=== PATIENT | female | born 1955 | race Caucasian/White ===

== ENCOUNTER 2016-12-27 17:59 | Inpatient (IN) | payer OTHER ==
[~2016-12-27] VITALS: Ht 165.1 cm; Wt 84.1 kg
[2016-12-27 21:25] VITALS: Ht 165.1 cm; Wt 84.1 kg
[2016-12-27] MEDS ORDERED: LORAZEPAM 1 MG TAB PO PRN (21:30)
[2016-12-27] MEDS: traMADol 50 MG TAB PO PRN (22:36)
[2016-12-27 23:00] VITALS: BP 120/63; RESP 18
[2016-12-28] MEDS ORDERED: BISACODYL 10 MG SUPP PR PRN (00:30)
[2016-12-28] MEDS ORDERED: MAGNESIUM HYDROXIDE 30ML CUP PO PRN (00:30)
[2016-12-28] MEDS ORDERED: ACETAMINOPHEN 325 MG TAB PO PRN (00:30)
[2016-12-28] MEDS ORDERED: LACTULOSE 30ML CUP PO PRN (00:30)
[2016-12-28] MEDS ORDERED: MIRTAZAPINE 15 MG TAB ONE (01:05)
[2016-12-28] MEDS: MIRTAZAPINE 15 MG TAB PO SCH ×2 (01:08→21:11)
[2016-12-28 02:00] VITALS: BP 95/51; RESP 18
[2016-12-28] MEDS: PANTOPRAZOLE (EC) 40 MG TAB PO SCH (05:56)
[2016-12-28] MEDS: traMADol 50 MG TAB PO PRN (05:56)
[2016-12-28] MEDS: SPIRONOLACTONE 50 MG TAB PO SCH ×2 (05:59→18:00)
[2016-12-28] MEDS ORDERED: ALENDRONATE 70 MG TAB PO SCH (07:05)
[2016-12-28 07:09] LABS: BASOPHIL # 0.1 10^3/ul (0.0-0.1); BASOPHILS % 1.1 % (0.0-2.0); EOSINOPHILS # 0.2 10^3/ul (0.0-0.5); EOSINOPHILS % 1.6 % (0.0-7.0); HEMOGLOBIN 12.8 g/dl (12.0-16.0); LYMPHOCYTES # 1.4 10^3/ul (0.8-2.9); LYMPHOCYTES % 15.1 % (15.0-51.0); MEAN CORPUSCULAR HEMOGLOBIN 29.4 pg (29.0-33.0); MEAN CORPUSCULAR VOLUME 91.7 fl (82.0-101.0); MEAN PLATELET VOLUME 9.7 fl (7.4-10.4); MONOCYTE # 0.6 10^3/ul (0.3-0.9); NEUTROPHIL # 6.9 10^3/ul (1.6-7.5); NEUTROPHILS % 73.4 % (39.0-77.0); PLATELET COUNT 485 10^3/UL (140-415); RED BLOOD COUNT 4.36 10^6/ul (4.20-5.40); RED CELL DISTRIBUTION WIDTH 14.6 % (11.5-14.5); WHITE BLOOD COUNT 9.4 10^3/ul (4.8-10.8)
[2016-12-28 07:31] LABS: ALBUMIN/GLOBULIN RATIO 1.02; BILIRUBIN,INDIRECT 0.6 mg/dl (0-1.1); BILIRUBIN,TOTAL 0.6 mg/dl (0.2-1.3); CALCIUM 9.1 mg/dl (8.4-10.2); CREATININE 0.91 mg/dl (0.44-1.00); POTASSIUM 4.2 mmol/L (3.5-5.1); TOTAL PROTEIN 7.9 g/dl (6.1-8.1)
[2016-12-28 08:00] VITALS: BP 154/82; RESP 19
[2016-12-28] MEDS ORDERED: ERGOCALCIFEROL 50,000 UNIT CAP PO SCH (09:00)
[2016-12-28] MEDS: GABAPENTIN 300 MG CAP PO SCH ×3 (09:33→21:10)
[2016-12-28] MEDS: RANITIDINE 150 MG TAB PO SCH (09:34)
[2016-12-28] MEDS: DOCUSATE SODIUM 100 MG CAP PO SCH ×2 (09:34→21:11)
[2016-12-28] MEDS: NAPROXEN 500 MG TAB PO SCH ×2 (09:34→21:10)
[2016-12-28] MEDS ORDERED: traMADol 50 MG TAB PO PRN (10:00)
[2016-12-28] MEDS: oxyCODONE 5 MG TAB PO PRN (10:47)
[2016-12-28] MEDS ORDERED: CALCIUM CARBONATE 500 MG CHEW TAB PO PRN (11:30)
[2016-12-28] MEDS: LORAZEPAM 1 MG TAB PO SCH ×2 (11:43→21:00)
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
[2016-12-28] MEDS: RIVAROXABAN 10 MG TABLET PO SCH ×2 (13:30→21:15)
[2016-12-28 14:00] VITALS: BP 120/82; PULSE 80; RESP 19
[2016-12-28 20:00] VITALS: BP 124/62; RESP 19
[2016-12-29 02:00] VITALS: BP 130/63; RESP 18
[2016-12-29] MEDS: SPIRONOLACTONE 50 MG TAB PO SCH ×2 (06:32→18:00)
[2016-12-29] MEDS: PANTOPRAZOLE (EC) 40 MG TAB PO SCH (06:32)
[2016-12-29] MEDS: traMADol 50 MG TAB PO PRN ×2 (06:45→21:58)
[2016-12-29 06:50] LABS: BASOPHIL # 0.1 10^3/ul (0.0-0.1); BASOPHILS % 0.8 % (0.0-2.0); EOSINOPHILS # 0.1 10^3/ul (0.0-0.5); EOSINOPHILS % 1.1 % (0.0-7.0); HEMOGLOBIN 13.2 g/dl (12.0-16.0); LYMPHOCYTES # 1.6 10^3/ul (0.8-2.9); LYMPHOCYTES % 17.8 % (15.0-51.0); MEAN CORPUSCULAR HEMOGLOBIN 28.8 pg (29.0-33.0); MEAN CORPUSCULAR HGB CONC 31.4 g/dl (32.0-37.0); MEAN CORPUSCULAR VOLUME 91.7 fl (82.0-101.0); MEAN PLATELET VOLUME 9.7 fl (7.4-10.4); MONOCYTE # 0.5 10^3/ul (0.3-0.9); NEUTROPHIL # 6.6 10^3/ul (1.6-7.5); NEUTROPHILS % 73.4 % (39.0-77.0); PLATELET COUNT 516 10^3/UL (140-415); RED BLOOD COUNT 4.58 10^6/ul (4.20-5.40)
[2016-12-29 07:00] VITALS: BP 159/80; RESP 18
[2016-12-29 07:03] LABS: ALBUMIN 3.7 g/dl (3.3-4.9); ALBUMIN/GLOBULIN RATIO 0.86; BILIRUBIN,INDIRECT 0.4 mg/dl (0-1.1); BILIRUBIN,TOTAL 0.4 mg/dl (0.2-1.3); CALCIUM 9.5 mg/dl (8.4-10.2); CREATININE 0.97 mg/dl (0.44-1.00); POTASSIUM 4.5 mmol/L (3.5-5.1)
[2016-12-29] MEDS: oxyCODONE 5 MG TAB PO PRN (07:27)
[2016-12-29 08:03] VITALS: BP 159/80; PULSE 97; RESP 20
[2016-12-29] MEDS: NAPROXEN 500 MG TAB PO SCH ×2 (09:00→20:10)
[2016-12-29] MEDS: RANITIDINE 150 MG TAB PO SCH ×2 (09:00→11:02)
[2016-12-29] MEDS: LORAZEPAM 1 MG TAB PO SCH ×2 (09:00→20:02)
[2016-12-29] MEDS: GABAPENTIN 300 MG CAP PO SCH ×4 (09:00→20:02)
[2016-12-29] MEDS: DOCUSATE SODIUM 100 MG CAP PO SCH ×2 (09:00→20:02)
[2016-12-29] MEDS: RIVAROXABAN 10 MG TABLET PO SCH ×2 (09:00→10:16)
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
[2016-12-29] MEDS ORDERED: oxyCODONE 5 MG TAB PO SCH ×2 (13:00→21:00)
[2016-12-29] MEDS: oxyCODONE 5 MG TAB PO SCH (13:59)
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
[2016-12-29 19:31] VITALS: BP 124/78; RESP 19
[2016-12-29] MEDS: MIRTAZAPINE 15 MG TAB PO SCH (20:02)
[2016-12-29] MEDS: NYSTATIN 30 GM POWDER BTL TOP SCH (20:06)
[2016-12-30 03:12] VITALS: BP 124/84; RESP 18
[2016-12-30] MEDS: oxyCODONE 5 MG TAB PO PRN (05:39)
[2016-12-30] MEDS: PANTOPRAZOLE (EC) 40 MG TAB PO SCH (05:39)
[2016-12-30] MEDS: SPIRONOLACTONE 50 MG TAB PO SCH ×2 (05:39→17:06)
[2016-12-30 07:30] VITALS: BP 126/74; RESP 20
[2016-12-30] MEDS: oxyCODONE 5 MG TAB PO SCH ×3 (08:08→17:06)
[2016-12-30] MEDS: LORAZEPAM 1 MG TAB PO SCH ×2 (08:08→20:30)
[2016-12-30] MEDS: GABAPENTIN 300 MG CAP PO SCH ×3 (08:08→20:30)
[2016-12-30] MEDS: RIVAROXABAN 10 MG TABLET PO SCH (08:08)
[2016-12-30] MEDS: RANITIDINE 150 MG TAB PO SCH (08:08)
[2016-12-30] MEDS: DOCUSATE SODIUM 100 MG CAP PO SCH ×2 (08:08→20:30)
[2016-12-30] MEDS: NAPROXEN 500 MG TAB PO SCH ×2 (08:10→20:30)
[2016-12-30] MEDS: NYSTATIN 30 GM POWDER BTL TOP SCH ×2 (08:11→20:32)
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
[2016-12-30] MEDS: MIRTAZAPINE 15 MG TAB PO SCH (17:06)
[2016-12-30] MEDS: traMADol 50 MG TAB PO PRN (19:40)
[2016-12-30 20:00] VITALS: BP 155/89; RESP 18
[2016-12-31 02:00] VITALS: BP 124/82; RESP 18
[2016-12-31] MEDS: SPIRONOLACTONE 50 MG TAB PO SCH ×2 (06:02→18:00)
[2016-12-31] MEDS: PANTOPRAZOLE (EC) 40 MG TAB PO SCH (06:02)
[2016-12-31 06:06] VITALS: BP 125/77; PULSE 100
[2016-12-31 07:30] VITALS: BP 116/77; RESP 18
[2016-12-31] MEDS: oxyCODONE 5 MG TAB PO SCH ×3 (07:54→18:00)
[2016-12-31] MEDS: LORAZEPAM 1 MG TAB PO SCH ×2 (08:13→20:15)
[2016-12-31] MEDS: DOCUSATE SODIUM 100 MG CAP PO SCH ×2 (08:13→20:15)
[2016-12-31] MEDS: RIVAROXABAN 10 MG TABLET PO SCH (08:13)
[2016-12-31] MEDS: RANITIDINE 150 MG TAB PO SCH (08:13)
[2016-12-31] MEDS: GABAPENTIN 300 MG CAP PO SCH ×3 (08:13→20:15)
[2016-12-31] MEDS: NAPROXEN 500 MG TAB PO SCH ×2 (08:13→20:15)
[2016-12-31] MEDS: NYSTATIN 30 GM POWDER BTL TOP SCH ×2 (09:00→20:15)
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
[2016-12-31] MEDS: traMADol 50 MG TAB PO PRN ×2 (10:21→14:37)
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
[2016-12-31] MEDS: NYSTATIN/TRIAMCINOLONE 15 GM CR TOP SCH ×2 (12:00→20:15)
[2016-12-31] MEDS: LIDOCAINE 5% PATCH TD SCH (13:01)
[2016-12-31] MEDS: NICOTINE (21 MG/24 HR) PATCH TRANSDERM SCH (14:37)
[2016-12-31 16:30] VITALS: BP 110/77; RESP 18
[2016-12-31] MEDS: MIRTAZAPINE 15 MG TAB PO SCH (18:00)
[2016-12-31 19:52] VITALS: BP 120/82; RESP 18
[2017-01-01 02:03] VITALS: BP 124/79; PULSE 82; RESP 18
[2017-01-01] MEDS: traMADol 50 MG TAB PO PRN ×2 (03:06→06:52)
[2017-01-01] MEDS: PANTOPRAZOLE (EC) 40 MG TAB PO SCH (06:52)
[2017-01-01] MEDS: SPIRONOLACTONE 50 MG TAB PO SCH ×2 (06:52→17:49)
[2017-01-01 07:00] VITALS: BP 107/66; RESP 18
[2017-01-01] MEDS: LORAZEPAM 1 MG TAB PO SCH ×2 (08:27→19:50)
[2017-01-01] MEDS: NAPROXEN 500 MG TAB PO SCH ×2 (08:27→19:50)
[2017-01-01] MEDS: DOCUSATE SODIUM 100 MG CAP PO SCH ×2 (08:27→19:51)
[2017-01-01] MEDS: oxyCODONE 5 MG TAB PO SCH ×3 (08:27→17:50)
[2017-01-01] MEDS: GABAPENTIN 300 MG CAP PO SCH ×3 (08:28→19:50)
[2017-01-01] MEDS: RANITIDINE 150 MG TAB PO SCH (08:28)
[2017-01-01] MEDS: NICOTINE (21 MG/24 HR) PATCH TRANSDERM SCH (08:29)
[2017-01-01] MEDS: NYSTATIN 30 GM POWDER BTL TOP SCH ×2 (08:29→19:53)
[2017-01-01] MEDS: RIVAROXABAN 10 MG TABLET PO SCH (08:29)
[2017-01-01] MEDS: LIDOCAINE 5% PATCH TD SCH (08:29)
[2017-01-01] MEDS: NYSTATIN/TRIAMCINOLONE 15 GM CR TOP SCH ×2 (09:00→19:53)
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
[2017-01-01] MEDS: MIRTAZAPINE 15 MG TAB PO SCH (17:49)
[2017-01-01 20:00] VITALS: BP 117/67; RESP 18
[2017-01-02 02:00] VITALS: BP 128/76; RESP 20
[2017-01-02] MEDS: SPIRONOLACTONE 50 MG TAB PO SCH (05:32)
[2017-01-02] MEDS: traMADol 50 MG TAB PO PRN (05:32)
[2017-01-02] MEDS: PANTOPRAZOLE (EC) 40 MG TAB PO SCH (05:33)
[2017-01-02 07:00] VITALS: BP 114/68; RESP 18
[2017-01-02] MEDS: NICOTINE (21 MG/24 HR) PATCH TRANSDERM SCH (08:12)
[2017-01-02] MEDS: LIDOCAINE 5% PATCH TD SCH (08:13)
[2017-01-02] MEDS: NYSTATIN 30 GM POWDER BTL TOP SCH (08:13)
[2017-01-02] MEDS: NYSTATIN/TRIAMCINOLONE 15 GM CR TOP SCH (08:13)
[2017-01-02] MEDS: GABAPENTIN 300 MG CAP PO SCH ×2 (08:13→13:17)
[2017-01-02] MEDS: RANITIDINE 150 MG TAB PO SCH (08:14)
[2017-01-02] MEDS: RIVAROXABAN 10 MG TABLET PO SCH (08:14)
[2017-01-02] MEDS: DOCUSATE SODIUM 100 MG CAP PO SCH (08:14)
[2017-01-02] MEDS: LORAZEPAM 1 MG TAB PO SCH (08:14)
[2017-01-02] MEDS: NAPROXEN 500 MG TAB PO SCH (08:14)
[2017-01-02] MEDS: oxyCODONE 5 MG TAB PO SCH ×2 (08:15→13:17)
--- NOTE | 2017-01-02 11:11 | CONS ---
Date/Time of Note Date/Time of Note DATE: 01/02/17 TIME: 11:09 Consult Date/Type/Reason Admit Date/Time Dec 27, 2016 at 20:52 Objective Vital Signs Date Time Temp Pulse Resp B/P Pulse Ox O2 Delivery O2 Flow Rate FiO2 01/02/17 07:00 98.8 18 114/68 98 01/02/17 02:00 94 01/01/17 02:03 Room Air Intake and Output 01/01/17 01/01/17 01/02/17 14:59 22:59 06:59 Intake Total 1200 ml 480 ml Output Total 600 ml 550 ml Balance 600 ml -70 ml INTERDISCIPLINARY TEAM CONFERENCE BOWEL- Cont BLADDER-Cont SKIN- intact OT- DRESSING-sba/min BATHING-sba/min TOILETING-min PT- BED MOBILITY-min TRANSFERS-min AMBULATION-min W.C. MOBILITY-sba SPEECH- COGNITION-I A/P- Interdisciplinary team conference held today. Please see interdisciplinary sheet. Working toward d.c. today if equipment obtained with post discharge follow up of physical therapy, occupational therapy. Results/Medications Result Diagram: 12/29/1620 12/29/1620 Medications Current Medications Gabapentin (Neurontin) 600 mg TID PO Last administered on 01/02/17 08:13; Admin Dose 600 MG; Start 12/28/16 at 09:00 Naproxen (Naprosyn) 500 mg BID PO Last administered on 01/02/17 08:14; Admin Dose 500 MG; Start 12/28/16 at 09:00 Pantoprazole (Protonix Tab) 40 mg DAILY@06 PO Last administered on 01/02/17 05:33; Admin Dose 40 MG; Start 12/28/16 at 06:00 Ergocalciferol (Drisdol) 50,000 unit We@09 PO Last administered on 12/28/16 09 :47; Admin Dose 50,000 UNIT; Start 12/28/16 at 09:00 Ranitidine HCl (Zantac) 300 mg DAILY PO Last administered on 01/02/17 08:14; Admin Dose 300 MG; Start 12/28/16 at 09:00 Docusate Sodium (Colace) 100 mg BID PO Last administered on 01/02/17 08:14; Admin Dose 100 MG; Start 12/28/16 at 09:00 Acetaminophen (Tylenol Tab) 650 mg Q4H PRN PO PAIN Last administered on 10:14; Admin Dose 650 MG; Start 12/28/16 at 00:30 Bisacodyl (Dulcolax Supp) 10 mg DAILY PRN [place] CONSTIPATION; Start 12/28/16 at 00 :30 Magnesium Hydroxide (Milk Of Mag) 30 ml BID PRN PO CONSTIPATION; Start at 00:30 Lactulose (Enulose) 20 gm DAILY PRN PO CONSTIPATION; Start 12/28/16 at 00:30 Lorazepam (Ativan) 1 mg BID PO Last administered on 01/02/17 08:14; Admin Dose 1 MG; Start 12/28/16 at 11:30 Tramadol HCl (Ultram) 50 mg Q4H PRN PO PAIN Last administered on 01/02/17 05: 32; Admin Dose 50 MG; Start 12/28/16 at 10:30 Oxycodone HCl (Roxicodone) 10 mg Q6H PRN PO PAIN Last administered on 05:39; Admin Dose 10 MG; Start 12/28/16 at 10:30 Calcium Carbonate (Tums) 500 mg Q6H PRN PO GI distress Last administered on 11:27; Admin Dose 500 MG; Start 12/28/16 at 11:30 Rivaroxaban (Xarelto) 5 mg DAILY PO Last administered on 01/02/17 08:14; Admin Dose 5 MG; Start 12/28/16 at 13:30 Oxycodone HCl (Roxicodone) 5 mg 08 PO Last administered on 01/02/17 08:15; Admin Dose 5 MG; Start 12/30/16 at 08:00 Oxycodone HCl (Roxicodone) 5 mg 13 PO Last administered on 01/01/17 14:16; Admin Dose 5 MG; Start 12/29/16 at 13:00 Nystatin (Nystatin Powder) 1 applic BID TOP Last administered on 01/02/17 08: 13; Admin Dose 1 APPLIC; Start 12/29/16 at 21:00 Mirtazapine (Remeron) 45 mg QPM@18 PO Last administered on 01/01/17 17:49; Admin Dose 45 MG; Start 12/30/16 at 18:00 Oxycodone HCl (Roxicodone) 10 mg QPM@18 PO Last administered on 01/01/17 17: 50; Admin Dose 10 MG; Start 12/30/16 at 18:00 Nicotine (Nicoderm 21 Mg/ 24hr) 1 patch DAILY TRANSDERM Last administered on 08:12; Admin Dose 1 PATCH; Start 12/31/16 at 13:00 Lidocaine (Lidoderm) 1 patch DAILY TD Last administered on 01/02/17 08:13; Admin Dose 1 PATCH; Start 12/31/16 at 12:00 Nystatin/ Triamcinolone Acetonide (Mycolog Cr) 1 applic BID TOP Last administered on 01/02/17 08:13; Admin Dose 1 APPLIC; Start 12/31/16 at 12:00 ATILIO WEATHERS MD Jan 02, 2017 11:11
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
== END 2017-01-02 14:30 | disposition home health service (06) | DRG 561 ==
LOC: VRC 20:52
PROVIDERS: ADMIT Physical Medicine & Rehabilitation; ATTEND Internal Medicine Nephrology
PROC: F07Z9FZ Gait Training/Functional Ambulation Treatment using Assistive, Adaptive, Supportive or Protective Equipment (ICD-10-PCS; principal; 2016-12-27)
PROC: F07Z5FZ Bed Mobility Treatment using Assistive, Adaptive, Supportive or Protective Equipment (ICD-10-PCS; 2016-12-27)
PROC: F07Z8FZ Transfer Training Treatment using Assistive, Adaptive, Supportive or Protective Equipment (ICD-10-PCS; 2016-12-27)
PROC: F08Z2FZ Grooming/Personal Hygiene Treatment using Assistive, Adaptive, Supportive or Protective Equipment (ICD-10-PCS; 2016-12-27)
PROC: F08Z0FZ Bathing/Showering Techniques Treatment using Assistive, Adaptive, Supportive or Protective Equipment (ICD-10-PCS; 2016-12-27)
PROC: F08Z1FZ Dressing Techniques Treatment using Assistive, Adaptive, Supportive or Protective Equipment (ICD-10-PCS; 2016-12-27)
DX: S22.31XD Fracture of one rib, right side, subsequent encounter for fracture with routine healing (principal); K74.60 Unspecified cirrhosis of liver; F41.9 Anxiety disorder, unspecified; S82.142D Displaced bicondylar fracture of left tibia, subsequent encounter for closed fracture with routine healing; S12.100D Unspecified displaced fracture of second cervical vertebra, subsequent encounter for fracture with routine healing; S22.22XD Fracture of body of sternum, subsequent encounter for fracture with routine healing; S42.021D Displaced fracture of shaft of right clavicle, subsequent encounter for fracture with routine healing; S01.01XD Laceration without foreign body of scalp, subsequent encounter; F17.210 Nicotine dependence, cigarettes, uncomplicated; V09.20XD Pedestrian injured in traffic accident involving unspecified motor vehicles, subsequent encounter
CPT/HCPCS: 80053; 85025; 87045; 87081; 92507; 92523; 92610; 97110; 97112; 97116; 97163; 97167; 97530; 97535; 97542; L1832

== ENCOUNTER 2018-01-08 11:41 | Day surgery (SDC) | END 2018-01-08 15:39 | disposition home or self-care (01) ==